=== PATIENT | male | born 1955 | race Caucasian/White ===

== ENCOUNTER → 2024-10-29 | Outpatient (CLI) | payer OTHER, SELFPAY ==
[2024-10-29 12:45] LABS: Amphetamine/Methamp Scrn,U Negative (Negative); Barbiturate Screen,Urine Negative (Negative); Benzodiazepines Screen,Urine Negative (Negative); Benzoylecgonine Screen, Ur Negative (Negative); Fentanyl Screen,Urine Negative (Negative); Opiate Screen,Urine Negative (Negative); THC Screen,Urine Positive (Negative)
== END | disposition home or self-care (01) ==
LOC: SLDO 10:45
PROVIDERS: Referring Provider Family Medicine; Visit Provider Family Medicine
DX: M54.2 Cervicalgia (principal); Z71.51 Drug abuse counseling and surveillance of drug abuser
CPT/HCPCS: 80307

== ENCOUNTER 2025-01-24 15:09 | Emergency (ER) | payer OTHER, SELFPAY ==
[2025-01-24 15:23] VITALS: BP 129/68; PULSE 84; RESP 20; TEMP 37; O2SAT 95
--- NOTE | 2025-01-24 16:04 | PD.EDRME ---
Rapid Medical Screening Exam RME Arrival date/time: 01/24/25 15:09 Chief Complaint: Wound/Laceration Time Seen by Provider: 01/24/25 15:25 Vital signs: Vital Signs Temperature 98.6 F 01/24/25 15:23 Pulse Rate 84 01/24/25 15:23 Respiratory Rate 20 01/24/25 15:23 Blood Pressure 129/68 01/24/25 15:23 Pulse Oximetry (%) 95 01/24/25 15:23 Oxygen Delivery Method Room Air 01/24/25 15:23 Vital signs reviewed by provider: Yes RME Narrative: 69-year-old male presents to the ED with a complaint of left small finger skin avulsion. This occurred just prior to his arrival when he was working outside and was pulling on a nylon rope. The nylon route caused the skin avulsion. His last tetanus is unknown. I have greeted and performed a focused initial assessment of this patient. A comprehensive ED assessment and evaluation of the patient.
[2025-01-24] MEDS: DIPHTH,PERTUSS(ACELL),TET VAC 0.5 ML SYR- ADULT IMi (16:40)
--- NOTE | 2025-04-05 13:06 | PD.EDADULT ---
ED General RME/HPI General Chief complaint: Wound/Laceration Stated complaint: LAC TO L) 5TH DIGIT, HAPPENED 45 MIN AGO Time Seen by Provider: 01/24/25 15:25 Arrival date/time: 01/24/25 15:09 RME / HPI RME / HPI narrative: 69-year-old male presents to the ED with a complaint of left small finger skin avulsion. This occurred just prior to his arrival when he was working outside and was pulling on a nylon rope. The nylon rope caused the skin avulsion. His last tetanus is unknown. Related Data Home Medications ?Medication ?Instructions ?Recorded ?Confirmed atorvastatin 10 mg tablet (Lipitor) 10 mg PO HS #0 tabs 02/12/15 05/10/24 alprazolam 1 mg tablet (Xanax) 1 mg PO TID PRN Anxiety 05/10/24 05/10/24 docusate sodium 250 mg capsule 250 mg PO QDAY 05/10/24 05/10/24 (Stool Softener) hydrocodone 10 mg-acetaminophen 1 tab PO Q6H PRN Pain 05/10/24 05/10/24 325 mg tablet metoprolol succinate 50 mg 50 mg PO QDAY 05/10/24 05/10/24 tablet,extended release 24 hr pantoprazole 40 mg tablet,delayed 40 mg PO QDAY 05/10/24 05/10/24 release simethicone 125 mg capsule 250 mg PO QDAY PRN gas relief 05/10/24 05/10/24 Allergies Allergy/AdvReac Type Severity Reaction Status Date / Time tree nut Allergy Intermediate Rash Verified 01/24/25 15:13 Milk Containing Products Allergy Unknown Verified 01/24/25 15:13 (Dairy) (Milk Containing Products) morphine Allergy Unknown Rash Verified 01/24/25 15:13 codeine AdvReac Unknown GI UPSET Verified 01/24/25 15:13 Review of Systems Review of Systems Systems Reviewed: All systems reviewed, normal except as documented Past Medical History Past Medical History NEUROLOGIC: Negative Neurological Disorders, Cerebrovascular Accident, Transient Ischemic Attacks (TIA), Dementia, Alzheimer's Disease, Parkinson's Disease, Brain Tumor, Meningitis, Seizures, Epilepsy, Multiple Sclerosis, Cerebral Palsy, Amyotrophic Lateral Sclerosis (ALS/Georgina Gehrig's), Guillain-[place] Syndrome, Spina Bifida, Paralysis, Peripheral Neuropathy, Dodd's Palsy, Subdural Hematoma, Migraine, Head Trauma, Spinal Cord Injury or Traumatic Brain Injury CARDIAC: Positive Cardiac Disorders, Myocardial Infarction, Coronary Artery Disease, Hypercholesterolemia and Hypertension; Negative Cardiac Arrhythmia, Atrial Fibrillation, Angina, Heart Murmur, Atherosclerotic Heart Disease, Peripheral Vascular Disease, Aneurysm, Congestive Heart Failure, Congenital Heart Disease, Valvular Heart Disease, Rheumatic Fever, Cardiomyopathy, Edema, Pericarditis, Cellulitis, Deep Vein Thrombosis or Varicose Veins RESPIRATORY: Negative Chronic Obstructive Pulmonary Disease (COPD), Asthma, Bronchitis, Emphysema, Pneumonia, Pulmonary Fibrosis, Cystic Fibrosis, Tuberculosis, Pulmonary Embolism, Pulmonary Edema or Sleep Apnea GASTROINTESTINAL: Positive Gastrointestinal Disorders and Diverticulitis (SEVERE REMOVED WITH SURGEY); Negative Hepatitis, Cirrhosis, Pancreatitis, Gall Bladder Disease, Gastrointestinal Bleed, Esophageal Varices, Christy's Esophagus, Colitis, Ulcerative Colitis, Diverticulosis, Ulcer, Colorectal Cancer, Irritable Bowel, Crohn's Disease, Obstructive Bowel, Hiatal Hernia, Hemorrhoids, Gastroesophageal Reflux Disease or Obesity GENITOURINARY: Negative Genitourinary Disorders, Renal Disease, Kidney Stones, Polycystic Kidney Disease, Neurogenic Bladder, Inguinal Hernia, Dialysis, Prostate Cancer or Benign Prostatic Hyperplasia REPRODUCTIVE: Negative Breast Cancer, Fibroids, Genital Herpes, Gonorrhea, Syphilis or Testicular Cancer MUSCULOSKELETAL: Positive Musculoskeletal Disorders and Arthritis; Negative Muscular Dystrophy, Myasthenia Gravis, Marfan's Syndrome, Bone Cancer, Rheumatoid Arthritis, Osteoporosis, Degenerative Disk Disease, Gout, Scoliosis, Carpal Tunnel Syndrome, Fibromyalgia, Fractures, Degenerative Joint Disease, Osteomyelitis or Poliovirus ENT: Positive Cataracts; Negative Glaucoma, Blind, Retinal Detachment, Macular Degeneration, Ear Infection, Deafness, Head Trauma or Eye Prosthesis ENDOCRINE: Negative Endocrine Disorders, Diabetes Mellitus Type 1, Diabetes Mellitus Type 2, Hypoglycemia, Ankush's Syndrome, Joao's Disease, Hyperthyroidism, Hypothyroidism, Parathyroid Disease, Pituitary Disease, Systemic Lupus Erythematosus, Syndrome of Inappropriate Antidiuretic Hormone (SIADH), Adrenal Disease or Graves' Disease HEMATOLOGIC: Negative Blood Disorders, Anemia, Leukemia, Hemophilia, Thalassemia, Sickle Cell Disease or Clotting Problems PSYCHO/SOCIAL: Positive Anxiety; Negative Psychiatric Problems, Schizophrenia, Recreational Drug Use, Bipolar Disorder, Depression, Behavior Problems, Self-Mutilation, Attention Deficit Disorder, Attention Deficit Hyperactivity Disorder, Depression, Post Traumatic Stress Disorder or Eating Disorder OTHER HISTORY: Negative Hospitalization, Autoimmune Disease, Down Syndrome, Autism, Developmental Delay, Shingles, Falls, Blood Transfusions, Blood Transfusion Reaction, Anesthesia Reactions, Organ Transplant, Chemotherapy, Radiation Therapy, Hyperbaric Therapy, MRSA, VRSA, Vancomycin-Resistant Enterococci, Human Immunodeficiency Virus (HIV), Chicken Pox, Measles, Mumps, Rubella (Guinean Measles), Pertussis, Clostridium Difficile, Cancer, Breast Cancer, Cervical Cancer, Colorectal Cancer, Lung Cancer, Ovarian Cancer, Prostate Cancer or Testicular Cancer Surgical History SURGICAL: Positive Cardiac Surgery, Coronary Stent, Cardiac Catheterization, Angiogram and Abdominal Surgery; Negative Open Heart Surgery, Coronary Artery Bypass Graft, Valve Replacement, Vascular Surgery, Pacemaker, Auto Implanted Cardiovert Defib, Carotid Endarterectomy, Endocrine Surgery, Thyroidectomy, Ear Surgery, Tympanostomy Tube, Eye Surgery, Nose Surgery, Oral Surgery, Tonsillectomy, Adenoidectomy, Cochlear Implant, Corneal Transplant, Throat Surgery, Tracheostomy, Gastric Bypass Surgery, Gastrostomy, Bowel Surgery, Nephrectomy, Transurethral Resection, Joint Replacement, Amputation, Open Reduction Internal Fixation, Arthroscopy, Neurologic Surgery, Brain Shunt, Mastectomy, Lumpectomy, Hysterectomy, Tubal Ligation, Section, Vasectomy or Organ Transplant Social History SMOKING STATUS: Former smoker SUBSTANCE USE: marijuana ED Exam Narrative Physical exam: Alert and oriented, 69-year-old male, no acute distress. Vital signs reviewed and stable. Lungs are clear, regular rate and rhythm. Left small finger with deep abrasion/avulsion with no remaining flap. Bleeding is controlled. No functional deficit. CMS intact distally. Course Course Course Narrative: Wound was cleansed and a dressing applied. Tdap updated. Quality Measures none Orders Category Date Time Status TDap [Obtain Tdap Consent] X1 Care 01/24/25 16:05 Completed Wound Care NOW Care 01/24/25 16:06 Completed TET,DIP/PERT AC (Adult)-Tdap [Boostrix Adult (Tdap) Med 01/24/25 16:05 Discontinued Vacc] 0.5 ml IMI .ONCE ONE Vital Signs Vital signs: Vital Signs Temperature 98.6 F 01/24/25 15:23 Pulse Rate 84 01/24/25 15:23 Respiratory Rate 20 01/24/25 15:23 Blood Pressure 129/68 01/24/25 15:23 Pulse Oximetry (%) 95 01/24/25 15:23 Oxygen Delivery Method Room Air 01/24/25 15:23 Discharge Plan Plan Patient Disposition: HOME (Self Care) Discharge Disposition comment: Stable and improved Prescriptions/Referrals Prescriptions/Med Rec: No Action atorvastatin [Lipitor] 10 MG tablet 10 mg PO HS Qty: 0 alprazolam [Xanax] 1 mg Tablet 1 mg PO TID PRN (Reason: Anxiety) metoprolol succinate 50 mg Tablet Extended Release 24 Hr 50 mg PO QDAY simethicone 125 mg Capsule 250 mg PO QDAY PRN (Reason: gas relief) hydrocodone-acetaminophen 10-325 mg Tablet 1 tab PO Q6H PRN (Reason: Pain) pantoprazole 40 mg Tablet,Delayed Release (Dr/Ec) 40 mg PO QDAY docusate sodium [Stool Softener] 250 mg Capsule 250 mg PO QDAY Referrals: Cl Chavarria MD [Primary Care Provider] - In 1 week Problem List Clinical Impression: Avulsion of skin of finger Patient/Caregiver Discharge Instructions Other Activity Instructions:: Keep the wound clean and dry. Keep the dressing in place for at least 48 hours. Then you can remove the dressing, cleanse normally, then apply antibiotic ointment and a new dressing. Additional Instructions: Follow-up with your primary care physician in 24 to 48 hours. Return to the ED for any new or worsening symptoms. Print Language: Italian Stand Alone Forms: [employer] Award Info., Patient Portal Info Letter TERESA/JAYNE Supervising Physician TERESA/JAYNE Supervising Physician: Dr. Arellano [facility] Narrative MDM hospital course: 69-year-old male with a deep abrasion with skin avulsion to the palmar surface of the left small finger. Bleeding is controlled. Wound cleansed, antibiotic ointment applied and a dressing. Tdap updated. Clinical Information Provided by none and patient Medical Records Reviewed None Meds/Rx Considered, not Ordered None Labs/Rad/Tests considered, not Ordered None Chronic Illness/Social Conditions which may negatively complicate care or outcome(s)-explain: None or not applicable EKG EKG not done Lab Interpretation Labs: none Imaging Imaging interpretation: none Medication Administration(s) Medication Administration History Discontinued Medications Diphtheria/Tetanus/Acell Pertussis (Diphth,Pertuss(Acell),Tet Vac 0.5 Ml Syr- Adult) 0.5 ml IMi .ONCE ONE Stop: 01/24/25 16:06 Last Admin: 01/24/25 16:40 Dose: 0.5 ml Documented By: KF Tdap Diagnosis Differential diagnosis: Deep abrasion, skin avulsion, laceration Most likely dx, and/or detailed dx discussion: Deep abrasion with skin avulsion. Dispositon Disposition: Discharge Home Disposition comments: Patient is stable for discharge
== END 2025-01-24 16:55 | disposition home or self-care (01) ==
PROVIDERS: Emergency Provider Family Medicine; PCP Family Medicine
DX: S61.207A Unspecified open wound of left little finger without damage to nail, initial encounter (principal); X58.XXXA Exposure to other specified factors, initial encounter; Z23 Encounter for immunization
CPT/HCPCS: 90471; 90715; 99283

== ENCOUNTER → 2025-03-21 | Outpatient (CLI) | payer BC, SELFPAY ==
[2025-03-21 10:51] LABS: Basophils % (Auto) 1 % (0-2.5); Eosinophils # (Auto) 0.2 Thou/mm3 (0.0-0.5); Eosinophils % (Auto) 3 % (0-10); Hematocrit 45.2 % (41.0-53.0); Hemoglobin 15.7 g/dL (13.5-16.0); Immature Granulocytes % (Auto) 0 % (0-0); Immature Granulocytes Auto 0.03 Thou/mm3 (0.00-0.00); Lymphocytes # (Auto) 1.5 Thou/mm3 (1.0-4.8); Lymphocytes % (Auto) 18 % (10-50); Mean Corpuscular HGB Conc 34.7 g/dl (31.0-37.0); Mean Corpuscular Hemoglobin 29.8 pg (25.0-35.0); Mean Corpuscular Volume 86 fL (80-100); Monocytes % (Auto) 11 % (0-12); Neutrophils # (Auto) 5.9 Thou/mm3 (1.8-7.7); Neutrophils % (Auto) 68 % (37-80); Nucleated Red Blood Cell % 0 /100 WBC (0); Platelet Count 244 Thou/mm3 (140-440); RDW Standard Deviation 41.5 fL (35.1-43.9); Red Blood Count 5.27 Miln/mm3 (4.50-5.90); White Blood Count 8.7 Thou/mm3 (3.8-10.6)
[2025-03-21 10:58] LABS: Glucose Estimated Average 123 mg/dL (80-131); Hemoglobin A1C 5.9 % Hgb (4.8-6.0)
[2025-03-21 11:04] LABS: Alanine Aminotransferase 23 U/L (10-49); Albumin, Serum 4.5 gm/dL (3.4-4.8); Albumin/Globulin Ratio 1.8 (1.2-2.2); Alkaline Phosphatase 149 U/L (46-116); Anion Gap 8 (7-16); Aspartate Amino Transferase 20 U/L (0-34); BUN/Creatinine Ratio 14 Ratio (12-20); Bilirubin,Total 0.4 mg/dL (0.3-1.2); Blood Urea Nitrogen 14 mg/dL (9-23); Calcium 9.3 mg/dL (8.3-10.6); Calcium (Corrected) 9.3 mg/dL (8.5-10.1); Carbon Dioxide 26.7 mMol/L (20.0-31.0); Cardiac Risk Estimate 5.6 RATIO (4.0-6.7); Chloride 106 mMol/L (98-107); Cholesterol 157 mg/dL (132-200); Globulin 2.5 gm/dL (2.3-3.5); Glucose 132 mg/dL (74-106); HDL Cholesterol 28 mg/dL (40-60); LDL Cholesterol,Calculated 74 mg/dL (0-130); Osmolality,Calculated 283 (275-295); Potassium 4.4 mMol/L (3.4-5.1); Sodium 141 mMol/L (136-145); Triglycerides 276 mg/dL (30-150); eGFR > 60 See Note
[2025-03-21 15:25] LABS: Misc Send Out* See Sep Rpt
== END | disposition home or self-care (01) ==
LOC: COPL 09:12
PROVIDERS: PCP Student in an Organized Health Care Education/Training Program; Referring Provider Student in an Organized Health Care Education/Training Program; Visit Provider Student in an Organized Health Care Education/Training Program
DX: M54.50 Low back pain, unspecified (principal); I10 Essential (primary) hypertension; I25.10 Atherosclerotic heart disease of native coronary artery without angina pectoris; F41.8 Other specified anxiety disorders
CPT/HCPCS: 36415; 80053; 80061; 83036; 84443; 85025